=== PATIENT | male | born 1970 | race Caucasian/White ===

== ENCOUNTER 2017-06-22 20:08 | Emergency (ER) | payer OTHER ==
[~2017-06-22] VITALS: Ht 182.8 cm; Wt 113.4 kg
[~2017-06-22 20:08] MED LIST: ANTIVERT25 MG PO; BIAXIN500 MG PO; CALCIUM1 TAB PO; CLARITIN10 MG PO; CLEOCIN150 MG PO; CLINDAMYCIN HC300 MG PO; CYCLOBENZAPRINE10 MG PO; HYDROCODONE BIT1 T11 PO; LISINOPRIL40 MG PO; MIDRIN (DURADR1 CAP PO; MOTRIN800 MG PO; PERIDEX 480 ML480 ML PO; PREDNISONE10 MG PO; PRILOSEC40 M1 PO; ROBITUSSIN AC 110 ML PO; TAMIFLU75 MG PO; ULTRAM50 MG PO; VENTOLIN H0.09 MG/AC INH; VICO75300 PO; XANAX1 MG PO; ZITHROMAX Z PA250 MG PO; ZOFRAN4 MG PO
[2017-06-22 20:30] VITALS: BP 111/78
[2017-06-22 21:15] LABS: BASO % 0.4 % (0.0-1.0); EOS # 0.4 10*3/uL (0.0-0.4); EOS % 3.7 % (1.0-4.0); HEMATOCRIT 44.6 % (42.0-52.0); HEMOGLOBIN 15.3 g/dl (14.0-18.0); LYMPH # 2.8 10*3/uL (1.3-4.4); LYMPH % 25.6 % (27.0-41.0); MEAN CELL VOLUME 92.1 fl (80.0-94.0); MEAN CORPUSCULAR HGB 31.6 pg (27.0-31.0); MEAN CORPUSCULAR HGB CONC 34.3 g/dl (33.0-37.0); MEAN PLATELET VOLUME 9.5 fl (9.6-12.3); MONO # 0.9 10*3/uL (0.1-1.0); MONO % 7.8 % (3.0-9.0); NEUT # 6.7 10*3/uL (2.3-7.9); NEUT % 61.4 % (47.0-73.0); PLATELET COUNT AUTOMATED 265 10*3/uL (130-400); RED BLOOD COUNT 4.84 10*6/uL (4.50-5.90); RED CELL DISTRI WIDTH 13.3 % (0-14.5); WHITE BLOOD COUNT 10.8 10*3/uL (4.8-10.8)
[2017-06-22 21:31] LABS: ALBUMIN 3.4 gm/dl (3.1-4.5); ALKALINE PHOSPHATASE 90 U/L (45-117); BUN 12 mg/dl (7-24); CHLORIDE 105 mmol/L (98-107); CREATININE 1.18 mg/dL (0.70-1.30); POTASSIUM 4.5 mmol/L (3.5-5.1); SGOT/AST 66 IU/L (3-35); SGPT/ALT 87 U/L (12-78); SODIUM 141 mmol/L (136-145); TOTAL PROTEIN 7.7 gm/dL (6.4-8.2)
[2017-06-22 21:36] LABS: ACT PARTIAL THROMBO TIME 23.9 SECONDS (20.8-31.5); INTERNATIONAL NORM RATIO 0.9 (2.0-3.5)
[2017-06-22] MEDS ORDERED: ULTRAM50 MG PO (22:32)
== END 2017-06-22 22:23 | disposition home or self-care (01) ==
LOC: ED 20:08
PROVIDERS: Nurse Practitioner
DX: H57.12 Ocular pain, left eye (principal); I10 Essential (primary) hypertension; F17.200 Nicotine dependence, unspecified, uncomplicated; F10.10 Alcohol abuse, uncomplicated; Z88.0 Allergy status to penicillin; Z79.899 Other long term (current) drug therapy

== ENCOUNTER 2017-07-01 12:54 | Emergency (ER) | payer OTHER ==
[~2017-07-01] VITALS: Ht 182.8 cm; Wt 130.6 kg
[2017-07-01 12:56] VITALS: BP 120/80
== END 2017-07-01 14:19 | disposition home or self-care (01) ==
LOC: ED 12:54
DX: S93.115A Dislocation of interphalangeal joint of left lesser toe(s), initial encounter (principal); I10 Essential (primary) hypertension; Z98.890 Other specified postprocedural states; Z88.0 Allergy status to penicillin; Z79.899 Other long term (current) drug therapy; Z87.891 Personal history of nicotine dependence; W01.198A Fall on same level from slipping, tripping and stumbling with subsequent striking against other object, initial encounter; Y93.89 Activity, other specified; Y92.098 Other place in other non-institutional residence as the place of occurrence of the external cause; Y99.9 Unspecified external cause status

== ENCOUNTER 2019-09-16 16:21 | Emergency (ER) | payer OTHER ==
[~2019-09-16] VITALS: Ht 182.8 cm; Wt 131.5 kg
[2019-09-16 16:35] VITALS: BP 156/97
[2019-09-16] MEDS ORDERED: NORCO 10-325 T1 EACH PO (18:39)
[2019-09-16] MEDS ORDERED: CYCLOBENZAPRINE10 MG PO (18:40)
== END 2019-09-16 18:47 | disposition home or self-care (01) ==
LOC: ED 16:21
DX: S39.012A Strain of muscle, fascia and tendon of lower back, initial encounter (principal); J44.9 Chronic obstructive pulmonary disease, unspecified; I10 Essential (primary) hypertension; F17.200 Nicotine dependence, unspecified, uncomplicated; Z88.0 Allergy status to penicillin; Z79.899 Other long term (current) drug therapy; V89.2XXA Person injured in unspecified motor-vehicle accident, traffic, initial encounter; Y93.89 Activity, other specified; Y92.89 Other specified places as the place of occurrence of the external cause; Y99.8 Other external cause status

== ENCOUNTER 2020-03-09 01:24 | Emergency (ER) | payer OTHER ==
[~2020-03-09] VITALS: Ht 182.8 cm; Wt 131.5 kg
[~2020-03-09 01:24] MED LIST changes: +NORCO 10-325 T1 EACH PO
[2020-03-09 01:28] VITALS: BP 139/90
== END 2020-03-09 01:45 | disposition left against medical advice (07) ==
LOC: ED 01:24
DX: M10.071 Idiopathic gout, right ankle and foot (principal); Z88.0 Allergy status to penicillin; Z79.899 Other long term (current) drug therapy

== ENCOUNTER → 2020-04-22 | Emergency (ER) | payer OTHER ==
[~2020-04-22] VITALS: Ht 182.8 cm; Wt 136.1 kg
[2020-04-22 13:19] VITALS: BP 157/97
[2020-04-22 13:48] LABS: BASO # 0.1 10*3/uL (0.0-0.1); BASO % 0.7 % (0.0-1.0); EOS # 0.3 10*3/uL (0.0-0.4); EOS % 3.1 % (1.0-4.0); HEMATOCRIT 46.2 % (42.0-52.0); LYMPH # 2.1 10*3/uL (1.3-4.4); LYMPH % 22.4 % (27.0-41.0); MEAN CELL VOLUME 94.5 fl (80.0-94.0); MEAN CORPUSCULAR HGB 31.7 pg (27.0-31.0); MEAN CORPUSCULAR HGB CONC 33.5 g/dl (33.0-37.0); MEAN PLATELET VOLUME 9.5 fl (9.6-12.3); MONO # 0.6 10*3/uL (0.1-1.0); NEUT # 6.2 10*3/uL (2.3-7.9); PLATELET COUNT AUTOMATED 246 10*3/uL (130-400); RED BLOOD COUNT 4.89 10*6/uL (4.50-5.90); RED CELL DISTRI WIDTH 13.3 % (0-14.5); WHITE BLOOD COUNT 9.2 10*3/uL (4.8-10.8)
[2020-04-22 14:05] LABS: ALBUMIN 3.1 gm/dl (3.1-4.5); ALKALINE PHOSPHATASE 86 U/L (45-117); BUN 12 mg/dl (7-24); CHLORIDE 110 mmol/L (98-107); POTASSIUM 4.1 mmol/L (3.5-5.1); SGPT/ALT 75 U/L (12-78); SODIUM 141 mmol/L (136-145)
[2020-04-22 14:06] LABS: TROPONIN I < 0.015 ng/ml (<0.045)
[2020-04-22 14:07] LABS: SGOT/AST 67 IU/L (3-35)
== END ==
LOC: ED 13:11
PROVIDERS: Emergency Medicine
DX: R07.9 Chest pain, unspecified (principal); Z53.29 Procedure and treatment not carried out because of patient's decision for other reasons

== ENCOUNTER 2020-10-21 17:21 | Emergency (ER) | payer OTHER ==
[~2020-10-21] VITALS: Ht 182.8 cm; Wt 127.0 kg
[2020-10-21 17:36] VITALS: BP 184/94
[2020-10-21 18:14] LABS: BASO % 0.4 % (0.0-1.0); EOS # 0.3 10*3/uL (0.0-0.4); EOS % 3.6 % (1.0-4.0); HEMATOCRIT 46.1 % (42.0-52.0); LYMPH # 1.5 10*3/uL (1.3-4.4); LYMPH % 15.8 % (27.0-41.0); MEAN CELL VOLUME 96.6 fl (80.0-94.0); MEAN CORPUSCULAR HGB 32.3 pg (27.0-31.0); MEAN CORPUSCULAR HGB CONC 33.4 g/dl (33.0-37.0); MEAN PLATELET VOLUME 8.9 fl (9.6-12.3); MONO # 0.8 10*3/uL (0.1-1.0); MONO % 8.3 % (3.0-9.0); NEUT # 6.6 10*3/uL (2.3-7.9); PLATELET COUNT AUTOMATED 252 10*3/uL (130-400); RED BLOOD COUNT 4.77 10*6/uL (4.50-5.90); RED CELL DISTRI WIDTH 13.5 % (0-14.5); WHITE BLOOD COUNT 9.3 10*3/uL (4.8-10.8)
[2020-10-21 18:31] LABS: ALBUMIN 2.9 gm/dl (3.1-4.5); ALKALINE PHOSPHATASE 96 U/L (45-117); BUN 11 mg/dl (7-24); CHLORIDE 109 mmol/L (98-107); CREATININE 0.94 mg/dL (0.70-1.30); POTASSIUM 3.9 mmol/L (3.5-5.1); SGOT/AST 84 IU/L (3-35); SGPT/ALT 87 U/L (12-78); SODIUM 141 mmol/L (136-145); TOTAL PROTEIN 7.1 gm/dL (6.4-8.2)
[2020-10-21 18:35] LABS: TROPONIN I < 0.015 ng/ml (<0.045)
[2020-10-21] MEDS ORDERED: HYDROCODONE-AC1 EAC1 PO (20:30)
== END 2020-10-21 20:35 | disposition home or self-care (01) ==
LOC: ED 17:21
PROVIDERS: Physician Assistant
DX: S22.42XA Multiple fractures of ribs, left side, initial encounter for closed fracture (principal); R60.0 Localized edema; K08.89 Other specified disorders of teeth and supporting structures; Z88.0 Allergy status to penicillin; Z79.899 Other long term (current) drug therapy; Z98.890 Other specified postprocedural states; V28.4XXA Motorcycle driver injured in noncollision transport accident in traffic accident, initial encounter; Y93.I9 Activity, other involving external motion; Y92.488 Other paved roadways as the place of occurrence of the external cause; Y99.8 Other external cause status

== ENCOUNTER 2022-04-21 21:21 | Emergency (ER) | payer OTHER ==
[~2022-04-21] VITALS: Ht 182.8 cm; Wt 136.1 kg
[~2022-04-21 21:21] MED LIST changes: +HYDROCODONE-AC1 EAC1 PO
[2022-04-21 21:29] VITALS: BP 171/95
[2022-04-21 22:11] LABS: BASO % 0.4 % (0.0-1.0); EOS # 0.2 10*3/uL (0.0-0.4); EOS % 1.8 % (1.0-4.0); LYMPH # 2.1 10*3/uL (1.3-4.4); LYMPH % 22.1 % (27.0-41.0); MEAN CELL VOLUME 96.6 fl (80.0-94.0); MEAN CORPUSCULAR HGB 32.4 pg (27.0-31.0); MEAN CORPUSCULAR HGB CONC 33.5 g/dl (33.0-37.0); MEAN PLATELET VOLUME 9.6 fl (9.6-12.3); MONO # 0.8 10*3/uL (0.1-1.0); MONO % 7.7 % (3.0-9.0); NEUT # 6.5 10*3/uL (2.3-7.9); NEUT % 67.3 % (47.0-73.0); PLATELET COUNT AUTOMATED 259 10*3/uL (130-400); RED BLOOD COUNT 4.76 10*6/uL (4.50-5.90); RED CELL DISTRI WIDTH 12.9 % (0-14.5); WHITE BLOOD COUNT 9.7 10*3/uL (4.8-10.8)
[2022-04-21 22:26] LABS: ALKALINE PHOSPHATASE 81 U/L (45-117); BUN 11 mg/dl (7-24); CHLORIDE 110 mmol/L (98-107); CREATININE 0.93 mg/dL (0.70-1.30); LIPASE 157 U/L (73-393); POTASSIUM 4.2 mmol/L (3.5-5.1); SGOT/AST 48 IU/L (3-35); SGPT/ALT 59 U/L (12-78); SODIUM 142 mmol/L (136-145); TOTAL PROTEIN 7.6 gm/dL (6.4-8.2)
[2022-04-21 22:27] LABS: ACT PARTIAL THROMBO TIME 27.1 SECONDS (20.0-32.1)
[2022-04-22] MEDS ORDERED: HYDROCODONE-AC1 EAC1 PO (01:22)
== END 2022-04-22 01:26 | disposition home or self-care (01) ==
LOC: ED 21:21
PROVIDERS: Internal Medicine
DX: R07.89 Other chest pain (principal); K08.89 Other specified disorders of teeth and supporting structures; Z79.899 Other long term (current) drug therapy; Z88.0 Allergy status to penicillin

== ENCOUNTER 2023-06-06 08:28 | Emergency (ER) | payer OTHER ==
[~2023-06-06] VITALS: Ht 182.8 cm; Wt 147.4 kg
[2023-06-06 08:41] VITALS: BP 186/97
[2023-06-06] MEDS ORDERED: CLEOCIN HCL300 MG PO (08:50)
== END 2023-06-06 09:04 | disposition home or self-care (01) ==
LOC: ED 08:28
DX: K04.7 Periapical abscess without sinus (principal); K08.89 Other specified disorders of teeth and supporting structures; I10 Essential (primary) hypertension; Z88.0 Allergy status to penicillin; Z98.890 Other specified postprocedural states; Z90.49 Acquired absence of other specified parts of digestive tract

== ENCOUNTER 2023-06-15 10:13 | Emergency (ER) | payer OTHER ==
[~2023-06-15] VITALS: Ht 182.8 cm; Wt 136.1 kg
[~2023-06-15 10:13] MED LIST changes: +CLEOCIN HCL300 MG PO
[2023-06-15 10:29] VITALS: BP 173/91
[2023-06-15] MEDS ORDERED: TRAMADOL HCL50 MG PO (10:41)
== END 2023-06-15 11:13 | disposition home or self-care (01) ==
LOC: ED 10:13
DX: K04.7 Periapical abscess without sinus (principal); K02.9 Dental caries, unspecified; I10 Essential (primary) hypertension; J44.9 Chronic obstructive pulmonary disease, unspecified; E78.5 Hyperlipidemia, unspecified; Z90.49 Acquired absence of other specified parts of digestive tract; F17.290 Nicotine dependence, other tobacco product, uncomplicated

== ENCOUNTER 2023-08-25 09:27 | Emergency (ER) | payer OTHER ==
[~2023-08-25] VITALS: Ht 182.8 cm; Wt 154.2 kg
[~2023-08-25 09:27] MED LIST changes: +TRAMADOL HCL50 MG PO
[2023-08-25 09:37] VITALS: BP 154/97
[2023-08-25 10:08] LABS: BASO # 0.1 10*3/uL (0.0-0.1); BASO % 0.4 % (0.0-1.0); EOS # 0.3 10*3/uL (0.0-0.4); HEMATOCRIT 44.7 % (42.0-52.0); LYMPH # 2.2 10*3/uL (1.3-4.4); MEAN CELL VOLUME 93.9 fl (80.0-94.0); MEAN CORPUSCULAR HGB 31.5 pg (27.0-31.0); MEAN CORPUSCULAR HGB CONC 33.6 g/dl (33.0-37.0); MEAN PLATELET VOLUME 9.3 fl (9.6-12.3); MONO # 1.3 10*3/uL (0.1-1.0); MONO % 9.7 % (3.0-9.0); NEUT # 9.7 10*3/uL (2.3-7.9); NEUT % 71.2 % (47.0-73.0); PLATELET COUNT AUTOMATED 213 10*3/uL (130-400); RED BLOOD COUNT 4.76 10*6/uL (4.50-5.90); RED CELL DISTRI WIDTH 13.5 % (0-14.5); WHITE BLOOD COUNT 13.7 10*3/uL (4.8-10.8)
[2023-08-25] MEDS ORDERED: Acetaminophen/Hydrocodone 5 MG/325 MG TABLET PO ONE (10:10)
[2023-08-25 10:37] LABS: ALKALINE PHOSPHATASE 83 U/L (46-116); BUN 9 mg/dl (9-23); CHLORIDE 110 mmol/L (98-107); POTASSIUM 3.7 mmol/L (3.4-5.1); SGPT/ALT 42 U/L (5-49); TOTAL PROTEIN 7.1 gm/dL (6.0-8.0); URIC ACID 7.2 mg/dL (3.7-9.2)
[2023-08-25] MEDS ORDERED: PERCOCET 5-3251 EACH PO (11:12)
[2023-08-25] MEDS ORDERED: PREDNISONE50 MG PO (11:12)
[2023-08-25] MEDS ORDERED: methylPREDNISolone sod succ 125 MG VIAL IM ONE (11:15)
== END 2023-08-25 11:23 | disposition home or self-care (01) ==
LOC: ED 09:27
PROVIDERS: Emergency Medicine
DX: M10.9 Gout, unspecified (principal); I10 Essential (primary) hypertension; Z88.0 Allergy status to penicillin; Z90.49 Acquired absence of other specified parts of digestive tract; Z98.890 Other specified postprocedural states

== ENCOUNTER 2023-10-06 23:01 | Emergency (ER) | payer OTHER ==
[~2023-10-06] VITALS: Ht 2194 cm; Wt 154.2 kg
[~2023-10-06 23:01] MED LIST changes: +PERCOCET 5-3251 EACH PO; +PREDNISONE50 MG PO
[2023-10-06 23:07] VITALS: BP 175/87
[2023-10-06] MEDS ORDERED: Albuterol Sulf/Ipratropium 3 ML VIAL NEB ONE ×2 (23:25)
[2023-10-06] MEDS ORDERED: methylPREDNISolone sod succ 125 MG VIAL IM ONE (23:30)
[2023-10-06] MEDS ORDERED: Ondansetron Hydrochloride 4 MG TAB SL ONE (23:30)
[2023-10-06] MEDS ORDERED: Acetaminophen/Hydrocodone 5 MG/325 MG TABLET PO ONE (23:30)
[2023-10-07] MEDS ORDERED: ZITHROMAX250 MG PO (00:50)
[2023-10-07] MEDS ORDERED: PREDNISONE20 M1 PO (00:50)
== END 2023-10-07 01:35 | disposition home or self-care (01) ==
LOC: ED 23:01
DX: J44.1 Chronic obstructive pulmonary disease with (acute) exacerbation (principal); M10.072 Idiopathic gout, left ankle and foot; Z88.0 Allergy status to penicillin; Z79.899 Other long term (current) drug therapy; Z98.890 Other specified postprocedural states

== ENCOUNTER 2024-11-05 13:22 | Emergency (ER) | payer OTHER ==
[~2024-11-05] VITALS: Ht 182.8 cm; Wt 154.2 kg
[~2024-11-05 13:22] MED LIST changes: +PREDNISONE20 M1 PO; +ZITHROMAX250 MG PO
[2024-11-05 13:59] VITALS: BP 174/100
[2024-11-05] MEDS ORDERED: Ondansetron Hydrochloride 4 MG/2 ML VIAL IV ONE (14:05)
[2024-11-05] MEDS ORDERED: MORPHINE Sulfate 2 MG/ML SYR IV ONE (14:05)
[2024-11-05] MEDS ORDERED: Ketorolac Tromethamine 15 MG/ML VIAL IV ONE (14:05)
[2024-11-05 14:25] LABS: BASO % 0.5 % (0.0-1.0); EOS # 0.3 10*3/uL (0.0-0.4); EOS % 3.7 % (1.0-4.0); HEMATOCRIT 46.7 % (42.0-52.0); MEAN CELL VOLUME 95.3 fl (80.0-94.0); MEAN CORPUSCULAR HGB 31.2 pg (27.0-31.0); MEAN CORPUSCULAR HGB CONC 32.8 g/dl (33.0-37.0); MEAN PLATELET VOLUME 9.5 fl (9.6-12.3); MONO # 0.8 10*3/uL (0.1-1.0); NEUT # 5.4 10*3/uL (2.3-7.9); NEUT % 63.6 % (47.0-73.0); PLATELET COUNT AUTOMATED 214 10*3/uL (130-400); RED CELL DISTRI WIDTH 13.3 % (0-14.5); WHITE BLOOD COUNT 8.4 10*3/uL (4.8-10.8)
[2024-11-05 14:49] LABS: BUN 13 mg/dl (9-23); CHLORIDE 106 mmol/L (98-107); POTASSIUM 4.3 mmol/L (3.4-5.1)
[2024-11-05] MEDS ORDERED: LASIX20 MG PO (14:59)
[2024-11-05] MEDS ORDERED: FUROSEMIDE 40 MG/4 ML VIAL IV ONE (15:00)
== END 2024-11-05 15:22 | disposition home or self-care (01) ==
LOC: ED 13:22
PROVIDERS: Emergency Medicine
DX: I89.0 Lymphedema, not elsewhere classified (principal); J44.9 Chronic obstructive pulmonary disease, unspecified; M10.9 Gout, unspecified; I10 Essential (primary) hypertension; Z88.0 Allergy status to penicillin; Z90.49 Acquired absence of other specified parts of digestive tract; Z98.890 Other specified postprocedural states

== ENCOUNTER 2025-03-26 22:33 | Emergency (ER) | payer OTHER ==
[~2025-03-26 22:33] MED LIST changes: +LASIX20 MG PO
== END 2025-03-26 23:00 | disposition left against medical advice (07) ==
LOC: ED 22:33
DX: K08.89 Other specified disorders of teeth and supporting structures (principal); Z53.21 Procedure and treatment not carried out due to patient leaving prior to being seen by health care provider

== ENCOUNTER 2025-06-10 13:25 | Emergency (ER) | payer OTHER ==
[~2025-06-10] VITALS: Ht 182.8 cm; Wt 136.1 kg
[2025-06-10 13:41] VITALS: BP 174/98
[2025-06-10 14:19] LABS: BASO # 0.1 10*3/uL (0.0-0.1); BASO % 0.5 % (0.0-1.0); EOS # 0.2 10*3/uL (0.0-0.4); EOS % 2.0 % (1.0-4.0); MEAN CELL VOLUME 92.7 fl (80.0-94.0); MEAN CORPUSCULAR HGB 31.3 pg (27.0-31.0); MEAN PLATELET VOLUME 9.6 fl (9.6-12.3); MONO # 0.5 10*3/uL (0.1-1.0); MONO % 4.5 % (3.0-9.0); NEUT # 9.6 10*3/uL (2.3-7.9); NEUT % 81.1 % (47.0-73.0); NUCLEATED RED BLOOD CELL 0.0 % (0.0-0.0); NUCLEATED RED BLOOD CELL 0.0 10*3/uL (0.0-0.0); PLATELET COUNT AUTOMATED 260 10*3/uL (130-400); RED CELL DISTRI WIDTH 13.0 % (0-14.5)
[2025-06-10 14:31] LABS: BUN 16 mg/dl (9-23)
== END 2025-06-10 15:01 | disposition home or self-care (01) ==
LOC: ED 13:25
PROVIDERS: Internal Medicine
DX: T38.0X1A Poisoning by glucocorticoids and synthetic analogues, accidental (unintentional), initial encounter (principal); R45.0 Nervousness; Z88.0 Allergy status to penicillin; Z79.899 Other long term (current) drug therapy; Z98.890 Other specified postprocedural states; Y92.89 Other specified places as the place of occurrence of the external cause